=== PATIENT | male | born 1955 | race Caucasian/White ===

== ENCOUNTER 2018-06-10 19:34 | Emergency (ER) | payer OTHER ==
[2018-06-10] MEDS ORDERED: SODIUM CHLORIDE 0.9% 1000ML 1,000 ML IV ONE (19:51)
[2018-06-10 19:52] LABS: BASOPHILS % (AUTO) 2 % (0-3); EOSINOPHILS % (AUTO) 1 % (0-9); HEMATOCRIT 42 % (39-53); HEMOGLOBIN 13.3 gm/dl (13.5-17.7); LYMPHOCYTES % (AUTO) 9.4 % (10-50); MEAN CORPUSCULAR VOLUME 88 fL (80-100); MONOCYTES % (AUTO) 2.2 % (0-12); NEUTROPHILS % (AUTO) 85.3 % (37-80)
[2018-06-10] MEDS ORDERED: ONDANSETRON HCL 4 MG/2 ML SOL IV ONE ×2 (19:52→22:18)
[2018-06-10] MEDS ORDERED: ONDANSETRON HCL 4 MG/2 ML SOL ONE ×2 (19:55→22:19)
[2018-06-10 20:07] LABS: ALBUMIN 3.9 gm/dl (3.4-5.0); BILIRUBIN,TOTAL 1.8 mg/dl (0.2-1.0); CALCIUM 9.9 mg/dl (8.5-10.1); CARBON DIOXIDE 27.7 mEq/L (21-32); POTASSIUM 4.2 mMol/L (3.5-5.1); TOTAL PROTEIN 7.5 gm/dl (6.4-8.2)
[2018-06-10] MEDS ORDERED: MORPHINE SULFATE 10 MG/ML SOL IV ONE ×3 (20:27→21:16)
[2018-06-10] MEDS ORDERED: MORPHINE SULFATE 10 MG/ML SOL ONE ×3 (20:28→21:16)
[2018-06-10] MEDS ORDERED: PROMETHAZINE HYDROCHLORIDE 25 MG/ML SOL IV ONE (20:34)
[2018-06-10] MEDS ORDERED: PROMETHAZINE HYDROCHLORIDE 25 MG/ML SOL ONE (20:35)
[2018-06-10] MEDS ORDERED: SODIUM CHLORIDE 0.9% 1000ML 1,000 ML IV SCH (22:30)
[2018-06-10 22:48] VITALS: BP 150/83; PULSE 97; RESP 18; TEMP 99.7; O2SAT 94
[2018-06-10] MEDS ORDERED: PIPERACILLIN/TAZOBACT 3.375 GM PDS IV ONE (22:51)
[2018-06-10] MEDS ORDERED: PIPERACILLIN/TAZOBACT 3.375 GM 3.375 GM in SODIUM CHLORIDE 0.9% 100 ML 100 ML IV SCH (23:00)
== END 2018-06-10 23:10 | disposition short-term general hospital (02) | DRG 392 ==
LOC: ED 19:34
DX: R10.13 Epigastric pain (principal); E86.0 Dehydration
CPT/HCPCS: 36415; 74177; 80053; 82150; 85025; 87040; 87077; 87186; 87205; 96365; 96366; 96374; 96375; 99283; 99291; J2270; J2405; J2543; J2550; Q9967

== ENCOUNTER 2018-08-12 07:35 | Day surgery (SDC) | payer OTHER ==
[~2018-08-12 07:35] MED LIST: FENTANYL 100MCG/2ML SOL ONE; LIDOCAINE HCL 1% MPF 30 SOL ONE; ONDANSETRON HCL 4 MG/2 ML SOL ONE; PROPOFOL 500 MG/50 ML EMU IV ONE
[2018-08-12] MEDS ORDERED: FLEET ENEMA PR ONE ×2 (07:55→08:14)
[2018-08-12] MEDS ORDERED: CEFAZOLIN SODIUM 1 GM PDS ONE (08:33)
[2018-08-12] MEDS: BUPIVACAINE/EPI 0.5% 10 ML SOL INFIL ONE ×2 (09:07→10:01)
[2018-08-12] MEDS ORDERED: PROPOFOL 500 MG/50 ML EMU IV ONE (09:11)
[2018-08-12] MEDS ORDERED: NALOXONE HYDROCHLORIDE 0.4 MG/ML SOL ONE (10:16)
[2018-08-12] MEDS ORDERED: KETOROLAC TROMETHAMINE 30 MG/ML SOL ONE (10:29)
[2018-08-12] MEDS ORDERED: HYDROMORPHONE 1 MG/ML SYRINGE ONE (10:42)
[2018-08-12 11:07] VITALS: RESP 16
[2018-08-12] MEDS ORDERED: ACETAMINOPHEN 1,000 MG/100 ML VIAL IV ONE (11:20)
[2018-08-12 11:32] VITALS: TEMP 97.2
[2018-08-12 12:58] VITALS: PULSE 64; O2SAT 99
[2018-08-12 12:59] VITALS: BP 147/81
== END 2018-08-12 12:57 | disposition home or self-care (01) | DRG 951 ==
LOC: SURG 07:35
PROVIDERS: ATTEND Surgery
DX: Z12.11 Encounter for screening for malignant neoplasm of colon (principal); K40.90 Unilateral inguinal hernia, without obstruction or gangrene, not specified as recurrent
CPT/HCPCS: 99070; J0690; J1885; J2310; J2405; J3010; A6402; A9270-GY; C1781; J0131; J1170; J2001; J2704